=== PATIENT | female | born 1970 | race Caucasian/White ===

== ENCOUNTER 2022-07-08 13:33 | Emergency (ER) | payer OTHER ==
[~2022-07-08] VITALS: Ht 152.4 cm; Wt 61.2 kg
[2022-07-08 13:40] VITALS: BP 119/64
[2022-07-08] MEDS ORDERED: NACL 0.9% 1,000 ML IV ONE (14:15)
[2022-07-08] MEDS ORDERED: FAMOTIDINE 20 MG/2 ML VIAL IVP ONE (14:15)
[2022-07-08] MEDS ORDERED: ONDANSETRON 4 MG/2 ML VIAL IVP ONE ×2 (14:15→17:10)
[2022-07-08 14:36] LABS: BASOPHILS % (AUTO) 0.2 % (0.0-2.0); HEMATOCRIT 40.7 % (36-48); HEMOGLOBIN 13.7 g/dL (12.0-16.0); LYMPHOCYTES % (AUTO) 7.6 % (20.5-51.1); MEAN CORPUSCULAR HEMOGLOBIN 31 pg (27-31); MEAN CORPUSCULAR HGB CONC 34 g/dL (33-37); MONOCYTES # (AUTO) 0.6 K/uL (0.8-1.0); MONOCYTES % (AUTO) 4.1 % (1.7-9.3); NEUTROPHILS # (AUTO) 11.7 K/uL (1.8-7.7); NEUTROPHILS % (AUTO) 88.1 % (42.2-75.2); PLATELET COUNT (AUTO) 293 K/uL (140-450); RED BLOOD CELL COUNT(AUTO) 4.47 MIL/uL (4.20-5.40); WHITE BLOOD COUNT (AUTO) 13.3 K/uL (4.8-10.8)
--- NOTE | 2022-07-08 14:40 | NUR ---
52F presents to ED with c/o N/V/D, body aches, fevers and chills x3days. Pt reports a constant, sharp like, 5/10 head pain and low back pain. Pt reports taking Tylenol and Advil with mild relief, denies taking today. Pt denies trauma/injury to lower back.
[2022-07-08 14:59] LABS: ALBUMIN 3.1 g/dL (3.4-5.0); ANION GAP 14.3 (8-16); CARBON DIOXIDE 27.3 mmol/L (21-32); CREATININE 0.8 mg/dL (0.6-1.3); POTASSIUM 3.6 mmol/L (3.5-5.1); TOTAL BILIRUBIN 0.2 mg/dL (0.0-1.0)
--- NOTE | 2022-07-08 15:38 | NUR ---
PT AMBULATED TO RESTROOM FOR URINE SAMPLE
[2022-07-08 16:26] LABS: BILIRUBIN,URINE NEGATIVE (NEGATIVE); BLOOD, URINE TRACE-I (NEGATIVE); COLOR,URINE YELLOW (YELLOW); LEUKOCYTE ESTERASE ,URINE 2+ (NEGATIVE); NITRITE, URINE NEGATIVE (NEGATIVE); UGLUCOSE NEGATIVE (NEGATIVE)
[2022-07-08 16:32] LABS: APPEARANCE,URINE HAZY (CLEAR)
[2022-07-08] MEDS ORDERED: SIME125T38 PO ×2 (16:42→18:40)
[2022-07-08] MEDS ORDERED: ACET-10509 PO ×2 (16:42→18:40)
[2022-07-08] MEDS ORDERED: ONDA-188 PO ×2 (16:42→18:40)
[2022-07-08 16:52] LABS: RBC,URINE 0-5 /HPF (0-5)
[2022-07-08] MEDS ORDERED: NITR100C7 PO ×2 (16:58→18:40)
[2022-07-08] MEDS ORDERED: KETOROLAC 30 MG/ML VIAL IVP ONE (17:10)
[2022-07-08] MEDS ORDERED: diphenhydrAMINE 50 MG/ML VIAL IVP ONE (17:10)
--- NOTE | 2022-07-08 18:18 | NUR ---
IV removed, catheter intact and site benign. Applied folded 4x4 gauze and tape to stop bleeding.
[2022-07-08 18:20] VITALS: BP 105/68
--- NOTE | 2022-07-08 18:20 | NUR ---
Patient discharged with v/s stable. Written and verbal after care instructions given and explained. Patient alert, oriented and verbalized understanding of instructions. Ambulatory with steady gait. All questions addressed prior to discharge. ID band removed. Patient advised to follow up with PMD. Rx of Tylenol, Zofran, Macrobid, Mylanta given. Patient educated on indication of medication including possible reaction and side effects. Opportunity to ask questions provided and answered.
[2022-07-08] MEDS ORDERED: FAMOTIDINE 20 MG/2 ML VIAL IV SCH (21:00)
== END 2022-07-08 18:20 | disposition home or self-care (01) ==
LOC: MED 13:33
DX: A08.4 Viral intestinal infection, unspecified (principal); Z20.822 Contact with and (suspected) exposure to COVID-19; R11.2 Nausea with vomiting, unspecified; R19.7 Diarrhea, unspecified; N39.0 Urinary tract infection, site not specified; Z79.899 Other long term (current) drug therapy
CPT/HCPCS: 36415; 80053; 81001; 81025; 85025; 87086; 87426; 87804; 96361; 96374; 96375; 99284; J1200; J1885; J2405; J3490